=== PATIENT | female | born 1960 | race Caucasian/White ===

== ENCOUNTER 2025-10-25 17:15 | Emergency (ER) | payer MEDICARE ==
[2025-10-25] MEDS ORDERED: Acetaminophen 500 MG TAB ONE (19:16)
[2025-10-25] MEDS ORDERED: Ketorolac Tromethamine 30 MG (1 mL) VIAL ONE (19:16)
[2025-10-25] MEDS ORDERED: diphenhydrAMINE 50 MG/ML VIAL ONE (19:16)
[2025-10-25] MEDS ORDERED: Metoclopramide HCl 10 MG (2 mL) VIAL ONE (19:16)
[2025-10-25 19:50] LABS: ALT (SGPT) 31 U/L (Less than 34); AST (SGOT) 40 U/L (11-34); Albumin 4.6 g/dL (3.1-4.5); Alkaline Phosphatase 60 U/L (40-110); Anion Gap 17 mmol/L (10-20); BUN (Urea Nitrogen) 21 mg/dL (9.8-20.1); Bilirubin, Total 1.0 mg/dL (0.3-1.2); Calc. Creatinine Clearance 0 mL/min (70-130); Calcium 9.5 mg/dL (7.8-10.44); Carbon Dioxide 21 mmol/L (23-31); Chloride 104 mmol/L (98-107); Globulin 3.0 g/dL (2.4-3.5); Glucose 114 mg/dL (80-115); Lipase 37 U/L (8-78); Potassium 4.9 mmol/L (3.5-5.1); Sodium 137 mmol/L (136-145)
[2025-10-25 20:30] LABS: #Basophils Less than 0.03 10x3/uL (0.0-0.2); #Eosinophils Less than 0.03 10x3/uL (0.0-0.5); #Monocytes 0.26 10x3/uL (0.0-1.1); #Neutrophils 6.00 10x3/uL (1.5-8.4); %Basophils 0.1 % (0.0-2.0); %Eosinophils 0.0 % (0.0-6.0); %Lymphocytes 20.8 % (18.0-47.0); %Monocytes 3.3 % (0.0-10.0); %Neutrophils 75.4 % (40.0-75.0); Hematocrit 35.6 % (34.9-44.5); Hemoglobin 12.0 g/dL (12.0-15.5); Mean Corpuscular Hemoglobin 30.4 pg (27.0-33.0); Mean Corpuscular Volume 90.1 fL (81.6-98.3); Platelet Count 262 10x3/uL (150-450); Red Blood Cell (RBC) Count 3.95 10x6/uL (3.90-5.03); White Blood Cell (WBC) Count 7.95 10x3/uL (3.5-10.5)
[2025-10-25 20:56] LABS: Troponin I 0.016 ng/mL (< 0.028)
== END 2025-10-25 21:45 | disposition home or self-care (01) ==
LOC: CSHERS 17:15
DX: R51.9 Headache, unspecified (principal); R29.700 NIHSS score 0
CPT/HCPCS: 71045; 80053; 83690; 84484; 85025; 87428; 93005; 94760; 96374; 96375; 99284; J1200; J1885; J2765; 36415